=== PATIENT | male | born 1945 | race Caucasian/White ===

== ENCOUNTER → 2016-04-17 | Outpatient (CLI) | payer MEDICARE, OTHER | END | disposition home or self-care (01) | LOC: GMAB 14:38 | PROVIDERS: ATTEND Family Medicine | DX: L03.119 Cellulitis of unspecified part of limb (principal); L03.129 Acute lymphangitis of unspecified part of limb ==

== ENCOUNTER → 2016-04-21 | Outpatient (CLI) | payer MEDICARE, OTHER | END | disposition home or self-care (01) | LOC: LAB.O 10:33 | PROVIDERS: ATTEND Physician Assistant | DX: L29.0 Pruritus ani (principal); L25.1 Unspecified contact dermatitis due to drugs in contact with skin ==

== ENCOUNTER → 2016-05-22 | Outpatient (CLI) | payer MEDICARE, OTHER ==
--- NOTE | 2016-05-22 14:56 | MRI ---
EXAM DESCRIPTION: Abdomen w/wo Contrast CLINICAL HISTORY: 71 years Male, CIRRHOSIS OF LIVER COMPARISON: November 2015 TECHNIQUE: Multiplanar, multisequence imaging of the abdomen was performed prior to and after the administration of contrast. FINDINGS: Splenomegaly is noted. The spleen measures 18-19 cm in diameter. Gamna-Yanci bodies are noted within the spleen. The post contrasted images reveal no arterial enhancing lesion within the liver. No abnormal T2 hyperintensities noted within the liver. The liver demonstrates a nodular border. The portal vein is patent at this time. Gallbladder is unremarkable. The bilateral adrenal glands, bilateral kidneys and pancreas are unremarkable. IMPRESSION: While the vast majority the portal vein is widely patent, there is mural thrombus noted along its left lateral wall. The thrombus does not seen to occlude the splenic vein or the SMA. This finding supports the findings seen on the previous abdominal ultrasound from November 1999. Splenomegaly due to portal hypertension. Findings of cirrhosis with a strong can nodular liver noted. Electronically signed by: Ismael Darby MD 05/22/2016 2:55 PM CDT
== END | disposition home or self-care (01) ==
LOC: MRI 08:41
PROVIDERS: ATTEND Internal Medicine Gastroenterology
DX: I85.00 Esophageal varices without bleeding (principal); K74.69 Other cirrhosis of liver; R18.8 Other ascites; K42.9 Umbilical hernia without obstruction or gangrene

== ENCOUNTER → 2016-06-22 | Outpatient (CLI) | payer MEDICARE, OTHER | LOC: LAB.O 06-21 08:34 | PROVIDERS: ATTEND Internal Medicine Gastroenterology | DX: K74.69 Other cirrhosis of liver (principal); R73.9 Hyperglycemia, unspecified; M81.0 Age-related osteoporosis without current pathological fracture; R18.8 Other ascites; F43.21 Adjustment disorder with depressed mood; B25.8 Other cytomegaloviral diseases; J44.9 Chronic obstructive pulmonary disease, unspecified; I85.00 Esophageal varices without bleeding; K42.9 Umbilical hernia without obstruction or gangrene; K76.9 Liver disease, unspecified; M85.80 Other specified disorders of bone density and structure, unspecified site; R97.20 Elevated prostate specific antigen [PSA]; I97.131 Postprocedural heart failure following other surgery; Z87.440 Personal history of urinary (tract) infections; Z11.4 Encounter for screening for human immunodeficiency virus [HIV]; Z76.82 Awaiting organ transplant status; Z03.89 Encounter for observation for other suspected diseases and conditions ruled out; Z02.89 Encounter for other administrative examinations; Z87.891 Personal history of nicotine dependence; Z02.83 Encounter for blood-alcohol and blood-drug test ==

== ENCOUNTER → 2016-09-05 | Outpatient (CLI) | payer MEDICARE, OTHER | LOC: LAB.O 10:45 | PROVIDERS: ATTEND Internal Medicine Gastroenterology | DX: K74.60 Unspecified cirrhosis of liver (principal); R18.8 Other ascites; Z76.82 Awaiting organ transplant status; Z02.89 Encounter for other administrative examinations ==

== ENCOUNTER → 2017-01-03 | Outpatient (CLI) | payer MEDICARE, OTHER | END | disposition home or self-care (01) | LOC: LAB.O 09:45 | PROVIDERS: ATTEND Internal Medicine Gastroenterology | DX: C22.0 Liver cell carcinoma (principal); R77.2 Abnormality of alphafetoprotein; R94.5 Abnormal results of liver function studies ==

== ENCOUNTER → 2017-03-08 | Outpatient (CLI) | payer MEDICARE, OTHER | END | disposition home or self-care (01) | LOC: LAB.O 10:12 | PROVIDERS: ATTEND Internal Medicine Gastroenterology | DX: K74.60 Unspecified cirrhosis of liver (principal); Z01.818 Encounter for other preprocedural examination ==

== ENCOUNTER → 2017-05-09 | Outpatient (CLI) | payer MEDICARE, OTHER ==
--- NOTE | 2017-05-09 16:54 | MRI ---
EXAM DESCRIPTION: Lumbar Spine w/o Contrast MRI. CLINICAL HISTORY: SCIATICA, LEFT SIDE COMPARISON: None. TECHNIQUE: Multiplanar, multiple standard sequences, non contrast MRI, lumbar spine. FINDINGS: A low signal serpiginous line on all sequences, traverses the base of the left pedicle of L5 surrounded by marrow edema type signal on all sequences. No displacement of the pedicle. Marrow edema signal in the right pedicle extending to the facet joint. L5-S1: Disc desiccation minimal anterior bulging. Marked posterior disc space loss with Modic type I endplate reactive changes. Posterior bulging disc remnant 3 mm into the canal. Broad-based posterior disc osteophyte complex encroaching on the thecal sac. Abutting the descending left S1 nerve in the upper left third subarticular recess. Moderate canal narrowing. Bilateral facet arthrosis and hypertrophy on the left also encroaching on the left subarticular recess. Bilateral spondylosis left more than right with disc osteophyte complex causing bilateral foraminal stenosis more on the left. L4-5: Disc desiccation posterior broad-based bulge. Minimal left facet arthrosis with bilateral flavum ligament hypertrophy. AP canal diameter 12 mm. Moderate right foraminal narrowing and minimal left foraminal narrowing. L3-4: Minimal disc desiccation and posterior broad-based 4 mm bulge abutting the thecal sac and the descending bilateral L4 nerves. Bilateral facet joint effusion and bilateral flavum ligament hypertrophy. AP canal diameter 10 mm. Moderate to severe left foraminal narrowing and same on the right.. L2-3: Disc desiccation minimal disc bulge into the bilateral foramina with mild narrowing. Minimal anterior bulging. Moderate narrowing of the canal with hypertrophy of the flavum ligaments. L1-2: Disc desiccation no bulging. Right facet arthrosis and ligament hypertrophy with a 3 x 4 mm cystlike object Impressing on the right posterior thecal sac. Minimal hypertrophy of the left flavum ligament. Bilateral mild foraminal narrowing and mild canal narrowing but no significant disc bulge. T12-L1 disc normal signal and disc space preserved. Canal patent with minimal right foraminal narrowing. Bilateral flavum ligament hypertrophy. Paravertebral soft tissues no muscle atrophy. Transverse diameter of the distal abdominal aorta is 2.5 cm just above the bifurcation. This is approximately 3 cm in length longitudinal. Otherwise normal marrow signal in the remaining vertebral bodies and the posterior elements. L2-L4 levoscoliosis. Vertebral bodies are not compressed at any level. IMPRESSION: 1. Probable stress fracture at the base of the left pedicle of L5. Nondisplaced. 2. Spondylosis at L5-S1 with bilateral foraminal stenosis. Left posterior disc osteophyte complex and hypertrophy of the left facet narrowing the left subarticular recess stenosis and abutting the descending left S1 nerve. Correlate for left S1 radiculopathy. 3. Posterior broad-based L3-4 disc bulge abutting the descending bilateral L4 nerves. Borderline central canal stenosis 4. Synovial cyst protruding from the right L1-2 facet encroaching on the thecal sac. Narrowing the right side of the canal and the right foramen. 5. 3.5 cm abdominal aortic aneurysm just above the bifurcation approximately 3 cm in length. Consider follow-up ultrasound evaluation in 12 month interval. Please see [facility] Best Practice recommendations for imaging follow-up of dilated or aneurysmal abdominal aorta below.* * AAA Size: Follow-up Recommendation (1): 2.6 - 2.9 cm Every 5 years (2) 3.0 - 3.4 cm Every 3 years 3.5 - 3.9 cm Every 12 months 4.0 - 4.4 cm Every 12 months, vasc consult rec 4.5 - 5.4 cm Every 6 months, vasc consult rec >=5.5 cm Referral to vascular surgeon recommended (1)Based upon the Society for Vascular Surgery Guidelines: J Vasc Surg. 2009 Nov;50(4 Suppl):S2-49 (2)For aortas of max queta of 2.6-2.9 cm that meet criteria for AAA (>= 1.5 x proximal normal segment) Electronically signed by: Surjit Davey MD 05/09/2017 4:52 PM CDT
== END ==
LOC: MRI 08:00
PROVIDERS: ATTEND Family Medicine
DX: M54.32 Sciatica, left side (principal); M51.27 Other intervertebral disc displacement, lumbosacral region; I71.4 Abdominal aortic aneurysm, without rupture; M71.38 Other bursal cyst, other site

== ENCOUNTER → 2017-06-18 | Outpatient (CLI) | payer MEDICARE, OTHER | LOC: LAB.O 12:06 | PROVIDERS: ATTEND Internal Medicine Gastroenterology | DX: Z01.818 Encounter for other preprocedural examination (principal); E50.9 Vitamin A deficiency, unspecified; E55.9 Vitamin D deficiency, unspecified; E03.8 Other specified hypothyroidism; R73.9 Hyperglycemia, unspecified ==

== ENCOUNTER → 2017-06-21 | Day surgery (SDC) | payer MEDICARE, OTHER ==
[~2017-06-21] MED LIST: SODIUM CHLORIDE 0.9% 500ML 500 ML ONE
[2017-06-21 09:39] VITALS: BP 107/71; TEMP 99.2; O2SAT 95
== END | disposition home or self-care (01) ==
LOC: AMB 05:43
PROVIDERS: ATTEND Family Medicine
DX: D69.6 Thrombocytopenia, unspecified (principal); D50.9 Iron deficiency anemia, unspecified; K74.60 Unspecified cirrhosis of liver
CPT/HCPCS: 36415; 36514; 85025; J7040; P9035

== ENCOUNTER → 2017-07-04 | Day surgery (SDC) | payer MEDICARE, OTHER ==
[2017-07-04 09:25] VITALS: O2SAT 97
[2017-07-04 09:50] VITALS: BP 100/66; TEMP 97.7
== END ==
LOC: TXRM 08:00
PROVIDERS: ATTEND Family Medicine
DX: D69.6 Thrombocytopenia, unspecified (principal); D50.9 Iron deficiency anemia, unspecified; K74.60 Unspecified cirrhosis of liver
CPT/HCPCS: 36415; 36513; 85025; P9035

== ENCOUNTER → 2017-07-30 | Outpatient (CLI) | payer MEDICARE, OTHER | LOC: GMAB 07-23 12:24 → LAB.O 10:50 | PROVIDERS: ATTEND Internal Medicine Gastroenterology | DX: R18.8 Other ascites (principal); K72.90 Hepatic failure, unspecified without coma; K74.69 Other cirrhosis of liver; D69.6 Thrombocytopenia, unspecified; D50.9 Iron deficiency anemia, unspecified ==

== ENCOUNTER 2017-08-15 07:50 | Day surgery (SDC) | payer MEDICARE, OTHER ==
[2017-08-15 10:32] VITALS: BP 125/71; TEMP 98.6; O2SAT 94
== END 2017-08-15 10:35 | disposition home or self-care (01) ==
LOC: TXRM 07:50 → EDSTATUS 09:04 → TXRM 10:35
PROVIDERS: ATTEND Family Medicine
DX: D69.6 Thrombocytopenia, unspecified (principal); D50.9 Iron deficiency anemia, unspecified; K74.60 Unspecified cirrhosis of liver; R19.32 Left upper quadrant abdominal rigidity; F17.211 Nicotine dependence, cigarettes, in remission
CPT/HCPCS: 36415; 36430; 80323; 85025; P9035

== ENCOUNTER → 2017-09-06 | Outpatient (CLI) | payer MEDICARE, OTHER | LOC: LAB.O 14:29 | PROVIDERS: ATTEND Internal Medicine Gastroenterology | DX: K72.90 Hepatic failure, unspecified without coma (principal); R73.9 Hyperglycemia, unspecified ==

== ENCOUNTER → 2017-11-21 | Outpatient (CLI) | payer MEDICARE, OTHER | LOC: LAB.O 14:46 | PROVIDERS: ATTEND Internal Medicine Gastroenterology | DX: R97.8 Other abnormal tumor markers (principal); K72.90 Hepatic failure, unspecified without coma; F17.211 Nicotine dependence, cigarettes, in remission; R77.2 Abnormality of alphafetoprotein; E11.9 Type 2 diabetes mellitus without complications ==

== ENCOUNTER → 2018-02-21 | Outpatient (CLI) | payer MEDICARE, OTHER | LOC: LAB.O 12:46 | PROVIDERS: ATTEND Internal Medicine Gastroenterology | DX: K72.90 Hepatic failure, unspecified without coma (principal) ==

== ENCOUNTER → 2018-03-06 | Outpatient (CLI) | payer MEDICARE, OTHER ==
--- NOTE | 2018-03-07 11:59 | MRI ---
EXAM DESCRIPTION: Lumbar Spine w/o Contrast : Magnetic Resonance Imaging. CLINICAL HISTORY: RADICULOPATHY COMPARISON: MRI lumbar spine without contrast 05/09/2017. TECHNIQUE: Multiplanar, multiple standard sequences, non contrast MRI, lumbar spine. FINDINGS: Location of previous stress fracture in the left posterior L5 vertebral body, at the base of the left pedicle shows no recurrent fracture line or marrow edema. Heterogeneous signal is present. L5-S1: Moderate disc space loss more posteriorly with left side Modic type I endplate reactive changes, and more disc space loss. Disc spur complex expands laterally and into the left foramen with foraminal stenosis stable. Moderate foraminal narrowing on the right is improved since the prior study. Mild bilateral facet arthrosis and flavum ligament hypertrophy. Posterior broad-based disc osteophyte complex with stable narrowing of the bilateral subarticular recesses. Mild canal narrowing. L4-5 disc desiccation and disc space maintained. Posterior broad-based 3 mm disc bulge. Bilateral flavum ligament hypertrophy and right facet joint effusion. Moderate canal narrowing. Hyperintense T2 annular fissure in the right posterior margin of the disc. Mild to moderate right foraminal narrowing. Moderate left foraminal narrowing is stable from disc bulge and hypertrophic facet. L3-4: Disc desiccation minimal posterior narrowing. Anterior bulging. Posterior broad-based bulge with hyperintense T2 annular fissure in the midline. Flavum ligament hypertrophy and facet arthrosis with AP canal diameter 10 mm. Bilateral moderate foraminal narrowing with bilateral facets bulging annulus the nerves, stable. Left posterior disc bulge narrowing the left subarticular recess. Stable since the prior study. L2-3: Disc desiccation and disc space preserved. Anterior bulging. More narrowing of the disc space on the right with moderate right foraminal narrowing. Mild narrowing left foramen. Right facet arthrosis and ligament hypertrophy. Right posterior disc bulge narrowing the right subarticular recess. Stable since the prior study. L1-2: Disc desiccation with anterior bulging. Hyperintense T2 midline annular fissure posterior disc. Hypertrophic flavum ligaments and arthrosis right facet. Mild canal narrowing. Moderate right foraminal narrowing and left foramen is patent. T12-L1: Normal signal in the disc with disc space preserved. No bulging. Canal and left foramen are patent. Minimal narrowing right foramen. Conus terminates at this level. L1-L4 levoscoliosis is stable. Paravertebral soft tissues paraspinal muscle atrophy. 3.1 x 3.2 cm aneurysm distal abdominal aorta.. Normal marrow signal in the remaining vertebral bodies and the posterior elements. Vertebral bodies are not compressed at any level. IMPRESSION: 1. Healing stress fracture in the base of the left L5 pedicle and left posterior L5 vertebral body. 2. Stable left foraminal stenosis at L5-S1 with only moderate narrowing of the right foramen. Spondylosis stable left posterior lateral and stable posterior disc osteophyte bulge. Abutting the bilateral descending S1 nerves. Correlate for left L5 radiculopathy. 3. Stable posterior broad-based L4-5 disc bulge. Stable annular fissure right posterior lateral disc abutting the exiting right L4 nerve. Stable moderate left foraminal narrowing. 4. Stable broad-based posterior L3-4 disc bulge with midline annular fissure. Bulge to the left of midline narrowing the left subarticular recess and abutting the descending left L4 nerve. Stable since the prior study. Bilateral moderate foraminal narrowing is unchanged. 5. L2-3 disc desiccation and posterior bulge. Narrowing the left subarticular recess stable since the prior study. Moderate narrowing right foramen is unchanged. 6. Stable posterior midline annular fissure L1-2. Canal and foraminal narrowing unchanged. 7. 3.1 x 3.2 cm distal abdominal aneurysm has enlarged since the prior study. [facility] Best Practice recommendations: Recommend imaging follow-up every 3 years. Reference: J Vasc Surg 2009 Oct;50(4 Suppl):S2-49. Electronically signed by: Surjit Davey MD 03/07/2018 11:58 AM [facility]
== END ==
LOC: MRI 13:17
PROVIDERS: ATTEND Neurological Surgery
DX: M47.816 Spondylosis without myelopathy or radiculopathy, lumbar region (principal); S32.058A Other fracture of fifth lumbar vertebra, initial encounter for closed fracture; M51.86 Other intervertebral disc disorders, lumbar region

== ENCOUNTER → 2018-03-26 | Outpatient (CLI) | payer MEDICARE, OTHER ==
--- NOTE | 2018-03-26 15:30 | CT ---
EXAM DESCRIPTION: Lumbar Spine CLINICAL HISTORY: SPONDYLOSIS W/O MYELOPATHY OR RADICULOPATHY COMPARISON: Magnetic resonance imaging dated 06 March 2018 TECHNIQUE: Transaxial images were obtained without intravenous contrast media. Sagittal and coronal reconstruction was performed. This exam was performed according to our departmental dose-optimization program, which includes automated exposure control, adjustment of the mA and/or kV according to patient size and/or use of iterative reconstruction technique. FINDINGS: A left lumbar scoliosis is observed. There is no vertebral pathology. A 3.4 cm abdominal aortic aneurysm is observed unchanged from the prior magnetic resonance imaging exam. A TIPS stent is observed in place. Small stones are observed in both kidneys. T12-L1: Unremarkable. Facet joint arthritis is observed. L1-2: A minimal annular bulge is evident. Facet joint arthritis is seen. No significant compromise of the subarachnoid space or exiting nerve roots is detected. L2-3: A minimal annular bulge is evident. Mild facet joint arthritis is seen. No neural foraminal disease of significance is detected. L3-4: A 3.6 mm central disc bulge is evident. Mild facet joint arthritis is seen. No neural foraminal disease of significance is detected. L4-5: Central annular bulge is evident. Left neural foraminal encroachment is observed as result of facet joint arthritis. Right neural foramen is patent. L5-S1: Loss of disc height is observed. Vacuum disc phenomenon is noted. No disc bulge or disc herniation is seen. Facet joint arthritis and mild hypertrophy are observed. Left neural foraminal encroachment is observed as result of facet joint arthritis. IMPRESSION: 1. A 3.6 mm central disc bulge is observed at the L3-4 level. 2. Mild annular bulging or is observed at the L1-2, L2-3, and L4-5 levels. 3. Degenerative disc changes are observed at the L5-S1 level. There is facet joint arthritis and hypertrophy narrowing the left neural foramen. 4. Left neural foraminal encroachment is observed at the L4-5 levels result facet joint arthritis. 5. Abdominal aortic aneurysm is observed measuring 3.4cm in greatest diameter. Follow-up in 3 years is recommended Electronically signed by: Dinesh Chapman MD 03/26/2018 3:28 PM [facility]
== END ==
LOC: CT 10:30
PROVIDERS: ATTEND Neurological Surgery
DX: S32.058A Other fracture of fifth lumbar vertebra, initial encounter for closed fracture (principal); M47.816 Spondylosis without myelopathy or radiculopathy, lumbar region; M51.86 Other intervertebral disc disorders, lumbar region; I71.4 Abdominal aortic aneurysm, without rupture

== ENCOUNTER → 2018-05-03 | Outpatient (CLI) | payer MEDICARE, OTHER | LOC: LAB.O 14:12 | PROVIDERS: ATTEND Internal Medicine Endocrinology, Diabetes & Metabolism | DX: E11.9 Type 2 diabetes mellitus without complications (principal); K74.69 Other cirrhosis of liver ==

== ENCOUNTER → 2018-05-08 | Outpatient (CLI) | payer MEDICARE, OTHER | LOC: LAB.O 11:57 | PROVIDERS: ATTEND Internal Medicine Gastroenterology | DX: K72.90 Hepatic failure, unspecified without coma (principal) ==

== ENCOUNTER → 2018-07-24 | Outpatient (CLI) | payer MEDICARE, OTHER | LOC: LAB.O 08:26 | PROVIDERS: ATTEND Internal Medicine Gastroenterology | DX: Z01.818 Encounter for other preprocedural examination (principal); R97.20 Elevated prostate specific antigen [PSA]; K72.90 Hepatic failure, unspecified without coma; K74.69 Other cirrhosis of liver; E03.9 Hypothyroidism, unspecified; E78.2 Mixed hyperlipidemia; R97.8 Other abnormal tumor markers; E56.9 Vitamin deficiency, unspecified; Z79.4 Long term (current) use of insulin; Z87.440 Personal history of urinary (tract) infections ==

== ENCOUNTER → 2018-10-17 | Outpatient (CLI) | payer MEDICARE, OTHER | LOC: LAB.O 12:55 | PROVIDERS: ATTEND Internal Medicine Gastroenterology | DX: R76.8 Other specified abnormal immunological findings in serum (principal); K72.90 Hepatic failure, unspecified without coma ==

== ENCOUNTER → 2018-12-28 | Outpatient (CLI) | payer MEDICARE, OTHER | LOC: LAB.O 10:35 | PROVIDERS: ATTEND Internal Medicine Gastroenterology | DX: R74.8 Abnormal levels of other serum enzymes (principal); R79.9 Abnormal finding of blood chemistry, unspecified; K72.90 Hepatic failure, unspecified without coma; R97.8 Other abnormal tumor markers; Z79.899 Other long term (current) drug therapy ==

== ENCOUNTER → 2019-01-29 | Outpatient (CLI) | payer MEDICARE, OTHER ==
--- NOTE | 2019-01-29 13:41 | US ---
EXAM DESCRIPTION: Abdomen,Complete: Ultrasound. CLINICAL HISTORY: 74 years MaleEND STAGE LIVER DISEASE COMPARISON: CT scan lumbar spine March 2018. TECHNIQUE: Transabdominal scanning: grayscale and Doppler modes. FINDINGS: Gallbladder: Normal size. No intraluminal stones or sludge. Borderline wall thickening but no fluid. Nontender with transducer pressure. Common bile duct: 6.4 mm borderline enlarged. Liver: Heterogeneously increased echoes. Long axis right lobe 19.3 cm. Lobulated capsule. No ascites. Pancreas: Normal echogenicity and normal caliber of the duct.. Abdominal aorta: Normal caliber of the proximal and mid segments. Distal segment 3.6 x 2.9 cm, with echogenic calcified moffett and shadowing. 3.4 cm distal aortic aneurysm on prior CT scan. IVC: visualized; normal caliber. Spleen normal echogenicity; long axis measurement is 12.3 cm. Right kidney: 9.3 cm long axis. Increased cortical echogenicity less than the liver. Normal cortical thickness. Lobulated capsule. No echogenic stones or hydronephrosis. Left kidney: 9.7 cm long axis. Increased cortical echogenicity less than the liver, normal cortical thickness. Smooth capsule. No echogenic stones or hydronephrosis. Dilated vessels superior to the neelam hepatis and adjacent to the distal stomach. IMPRESSION: 1. Appearance of the liver suggests advanced cirrhosis. Small size. Mixed hepatopedal and hepatofugal flow in the portal vein. Hepatofugal flow in the hepatic veins. Lobulated capsule. No ascites. Probable varices in the vicinity of the distal stomach and superior to the neelam hepatis. 2. Gallbladder wall thickening and minimal dilation of the common bile duct but no stones or sludge or free fluid. Nontender with transducer pressure. 3. Spleen and pancreas unremarkable. Increased cortical echogenicity in the kidneys with normal thickness and no hydronephrosis. This may be age-related. 4. 3.6 cm abdominal aortic aneurysm. This has increased from 3.[address] scan lumbar spine March 2018. This could be related to modality and technique. Recommend follow-up every 2 years. Reference: J Am [place] Radiol 2013;10:789-794. Electronically signed by: Surjit Davey MD 01/29/2019 1:39 PM [employer]
== END ==
LOC: US 08:00
PROVIDERS: ATTEND Internal Medicine Gastroenterology
DX: K72.90 Hepatic failure, unspecified without coma (principal); I71.4 Abdominal aortic aneurysm, without rupture

== ENCOUNTER → 2019-05-12 | Outpatient (CLI) | payer MEDICARE, OTHER | LOC: LAB.O 13:04 | PROVIDERS: ATTEND Family Medicine | DX: Z87.891 Personal history of nicotine dependence (principal); K72.90 Hepatic failure, unspecified without coma; F55.8 Abuse of other non-psychoactive substances ==

== ENCOUNTER → 2019-07-30 | Outpatient (CLI) | payer MEDICARE, OTHER ==
--- NOTE | 2019-07-30 10:49 | MRI ---
EXAM DESCRIPTION: Abdomen w/wo Contrast CLINICAL HISTORY: 74 years Male, LIVER CIRRHOSIS COMPARISON: Ultrasound abdomen 01/29/2019. MR abdomen 05/22/2016. TECHNIQUE: Multiphasic MRI of the abdomen performed without and with IV contrast material. FINDINGS: Solid Organs: There is nodular contour of the liver. There is no suspicious hepatic lesion or abnormal enhancement. No fatty infiltration of liver observed. Spleen measuring no greater than 12.8 cm in maximal dimension. Unremarkable gallbladder without biliary duct dilatation. Normal-appearing pancreas, adrenal glands, and kidneys. As fracture: Infrarenal abdominal aorta just before the aortic bifurcation measures up to 3.6 x 3.2 cm in maximal transaxial dimension. Interval placement of TIPS catheter. Main portal vein measures up to 18 mm in diameter. Peritoneum: No ascites or pathologic adenopathy. GI tract: Unremarkable stomach. No obstruction of visualized small bowel. Colon is unremarkable. Thoracic structures: Normal visualized intrathoracic structures. Bones: Moderate levocurvature of the thoracic lumbar junction. IMPRESSION: 1. Cirrhotic appearing liver with no suspicious hepatic lesion. 2. Interval placement of TIPS. Main portal vein continues to be dilated. 3. 3.6 cm abdominal aortic aneurysm. Recommend follow-up every 2 years. Reference: J Am [place] Radiol 2013;10:789-794. Electronically signed by: Fernandez Escamilla MD 07/30/2019 10:47 AM CDT
== END ==
LOC: MRI 08:00
PROVIDERS: ATTEND Internal Medicine Gastroenterology
DX: Z01.812 Encounter for preprocedural laboratory examination (principal); K74.69 Other cirrhosis of liver; I71.4 Abdominal aortic aneurysm, without rupture; E11.9 Type 2 diabetes mellitus without complications; J34.9 Unspecified disorder of nose and nasal sinuses; Z95.828 Presence of other vascular implants and grafts; E44.1 Mild protein-calorie malnutrition

== ENCOUNTER → 2019-11-07 | Outpatient (CLI) | payer MEDICARE, OTHER | LOC: GMAE 11:20 | PROVIDERS: ATTEND Family Medicine | DX: Z12.5 Encounter for screening for malignant neoplasm of prostate (principal); K76.6 Portal hypertension; E11.9 Type 2 diabetes mellitus without complications | CPT/HCPCS: 84443; G0103 ==

== ENCOUNTER → 2020-01-26 | Outpatient (CLI) | payer MEDICARE, OTHER ==
--- NOTE | 2020-01-27 10:52 | US ---
EXAM DESCRIPTION: Abdomen,Complete: Ultrasound. CLINICAL HISTORY: 75 years Male OTHER CIRRHOSIS OF LIVER COMPARISON: None Available. TECHNIQUE: Transabdominal scanning: grayscale and Doppler modes. FINDINGS: Gallbladder: normal size, shape, echogenicity; no intraluminal stones or sludge. No fluid around the gallbladder. No wall thickening. 2.8 mm Non-tender with transducer pressure. Common bile duct: caliber 5.9 mm upper normal limits. Liver: normal echogenicity; contour liver capsule smooth where seen. No fluid around the liver. Intrahepatic biliary ducts normal caliber. Doppler hepatopedal flow and normal caliber portal vein 12 mm.. Long axis right lobe 12.7 cm. Pancreas: normal size and echogenicity. Duct not seen. Complete abdominal aorta: Normal caliber from the proximal segment to the mid segment. Distal segment is 3 cm caliber.. IVC: visualized and normal caliber. Right kidney: long axis measures 10.1 cm; volume 167.7 milliliters. Cortical echogenicity normal. Lobulated capsule.. Normal cortical thickness. No echogenic stones; no hydronephrosis. Left kidney: long axis measures 9.5 cm; volume 106.6 mm. Cortical echogenicity tab. Normal cortical thickness. 13 mm. No echogenic stone; no hydronephrosis. Spleen: Normal. No focal lesions.. 13.4 cm long axis. Other: None. IMPRESSION: 1. Normal sonography of the gallbladder, common bile duct, liver, intrahepatic ducts, and hepatic vascularity. Pancreas is unremarkable. No ascites. 2. Lobulation of the right renal capsule but normal thickness. Otherwise kidneys are negative. Spleen is borderline enlarged. Normal caliber of the IVC. 3. 3 cm abdominal aortic aneurysm. [facility] Best Practice Guidelines: 3 cm abdominal aortic aneurysm. Recommend follow-up every 3 years. Reference: J Am [place] Radiol 2013;10:789-794. Electronically signed by: Surjit Davey MD 01/27/2020 10:51 AM [facility]
== END ==
LOC: US 08:56
PROVIDERS: ATTEND Internal Medicine Gastroenterology
DX: K74.69 Other cirrhosis of liver (principal); Q63.1 Lobulated, fused and horseshoe kidney; R16.1 Splenomegaly, not elsewhere classified; I71.4 Abdominal aortic aneurysm, without rupture